=== PATIENT | female | born 1940 | race Caucasian/White ===

== ENCOUNTER → 2020-05-18 09:13 | Outpatient (CLI) | payer MEDICARE, OTHER, SELFPAY ==
--- NOTE | 2020-05-18 | DI.MG.S_ITS ---
BILATERAL DIGITAL SCREENING MAMMOGRAM 3D/2D WITH CAD POST LUMPECTOMY: 05/18/2020 CLINICAL: Routine screening. Personal history of left breast cancer. Comparison is made to exams dated: 04/03/2017 mammogram, 04/07/2018 mammogram, and 04/08/2019 mammogram - outside location. The tissue of both breasts is heterogeneously dense. This may lower the sensitivity of mammography. Current study was also evaluated with a Computer Aided Detection (CAD) system. There are benign post operative findings in the left breast. No significant masses, calcifications, or other findings are seen in either breast. There has been no significant interval change. IMPRESSION: BENIGN There is no mammographic evidence of malignancy. A 1 year screening mammogram is recommended. This exam was interpreted at Station ID: [id number]. NOTE: For mammograms, a report in lay terms will be sent to the patient. Approximately 15% of breast malignancies will not be visualized mammographically. In the management of a palpable breast mass, a negative mammogram must not discourage biopsy of a clinically suspicious lesion. Electronically Signed By: Wes ramírez/luis:05/18/2020 10:43:56 letter sent: Normal Exam ACR BI-RADS Category 2: Benign Finding(s) 3342F
--- NOTE | 2020-05-18 09:43 | DI.RAD.S_ITS ---
PROCEDURE: XR CHEST 2V INDICATIONS: COUGH SHORTNESS OF BREATH TECHNIQUE: 2 views of the chest were acquired. COMPARISON: None. FINDINGS: Surgical changes and devices: None. Lungs and pleura: Lungs are clear. No pleural effusions or pneumothorax. Mediastinum: Mediastinal contours are normal. Heart size is normal. Bones and chest wall: No suspicious bony abnormalities. Note is made of mild convex leftward scoliosis at the thoracolumbar junction with compensatory dextroscoliosis just above. Soft tissues appear unremarkable. IMPRESSION: Normal for age, source of current cough and shortness of breath symptoms is not seen. Dictated by: Pavel Neal M.D. on 05/18/2020 at 13:20 Approved by: Pavel Neal M.D. on 05/18/2020 at 13:21
== END ==
PROVIDERS: PCP Nurse Practitioner Family; Referring Provider Nurse Practitioner Family; Visit Provider Nurse Practitioner Family
DX: Z12.31 Encounter for screening mammogram for malignant neoplasm of breast (principal); Z85.3 Personal history of malignant neoplasm of breast; Z78.0 Asymptomatic menopausal state; R05 Cough; R06.02 Shortness of breath
CPT/HCPCS: 71046; 77063; 77067; 77080

== ENCOUNTER → 2021-05-23 14:46 | Outpatient (CLI) | payer MEDICARE, OTHER, SELFPAY ==
--- NOTE | 2021-05-23 | DI.MG.S_ITS ---
BILATERAL DIGITAL SCREENING MAMMOGRAM 3D/2D WITH CAD POST LUMPECTOMY: 05/23/2021 CLINICAL: Routine screening. Comparison is made to exams dated: 05/18/2020 mammogram - [facility], 04/08/2019 mammogram, and 04/07/2018 mammogram - outside location. The tissue of both breasts is heterogeneously dense. This may lower the sensitivity of mammography. Current study was also evaluated with a Computer Aided Detection (CAD) system. There are benign post operative findings in the left breast. No significant masses, calcifications, or other findings are seen in either breast. There has been no significant interval change. IMPRESSION: BENIGN There is no mammographic evidence of malignancy. A 1 year screening mammogram is recommended. This exam was interpreted at Station ID: [id number]. NOTE: For mammograms, a report in lay terms will be sent to the patient. Approximately 15% of breast malignancies will not be visualized mammographically. In the management of a palpable breast mass, a negative mammogram must not discourage biopsy of a clinically suspicious lesion. Electronically Signed By: Krishna Shelley M.D., jr/luis:05/23/2021 15:51:29 letter sent: Normal Exam ACR BI-RADS Category 2: Benign Finding(s) 3342F
== END ==
PROVIDERS: PCP Nurse Practitioner Family; Referring Provider Nurse Practitioner Family; Visit Provider Nurse Practitioner Family
DX: Z12.31 Encounter for screening mammogram for malignant neoplasm of breast (principal)
CPT/HCPCS: 77063; 77067

== ENCOUNTER → 2022-06-11 12:41 | Outpatient (CLI) | payer MEDICARE, OTHER, SELFPAY ==
--- NOTE | 2022-06-11 | DI.MG.S_ITS ---
BILATERAL DIGITAL SCREENING MAMMOGRAM 3D/2D WITH CAD: 06/11/2022 CLINICAL: Routine screening. Personal history of left breast cancer. Family history of breast cancer. Comparison is made to exams dated: 05/23/2021 mammogram, 05/18/2020 mammogram - [facility], and 04/08/2019 mammogram - outside location. Both breasts are heterogeneously dense, which may obscure small masses (category c / 51-75% glandular tissue). Current study was also evaluated with a Computer Aided Detection (CAD) system. There are benign post operative findings in the left breast. No significant masses, calcifications, or other findings are seen in either breast. There has been no significant interval change. IMPRESSION: BENIGN There is no mammographic evidence of malignancy. A 1 year screening mammogram is recommended. This exam was interpreted at Station ID: [id number]. NOTE: For mammograms, a report in lay terms will be sent to the patient. Approximately 15% of breast malignancies will not be visualized mammographically. In the management of a palpable breast mass, a negative mammogram must not discourage biopsy of a clinically suspicious lesion. Electronically Signed By: Isaiah arndt/luis:06/11/2022 14:55:51 letter sent: Normal Exam ACR BI-RADS Category 2: Benign Finding(s) 3342F
== END ==
PROVIDERS: PCP Nurse Practitioner Family; Referring Provider Nurse Practitioner Family; Visit Provider Nurse Practitioner Family
DX: Z12.31 Encounter for screening mammogram for malignant neoplasm of breast (principal); Z85.3 Personal history of malignant neoplasm of breast; Z80.3 Family history of malignant neoplasm of breast
CPT/HCPCS: 77063; 77067

== ENCOUNTER → 2023-07-10 14:58 | Outpatient (CLI) | payer MEDICARE, OTHER, SELFPAY ==
--- NOTE | 2023-07-10 14:59 | DI.MG.S_ITS ---
BILATERAL DIGITAL SCREENING MAMMOGRAM 3D/2D WITH CAD POST LUMPECTOMY: 07/10/2023 CLINICAL: Routine screening. Personal history of left breast cancer. Family History of breast cancer. Comparison is made to exams dated: 06/11/2022 mammogram, 05/23/2021 mammogram, 05/18/2020 mammogram - [facility], and 04/08/2019 mammogram - outside location. Both breasts are heterogeneously dense, which may obscure small masses (category c / 51-75% glandular tissue). Current study was also evaluated with a Computer Aided Detection (CAD) system. There are benign vascular calcifications in both breasts. There also are benign post operative findings in the left breast. No significant masses, calcifications, or other findings are seen in either breast. There has been no significant interval change. IMPRESSION: BENIGN There is no mammographic evidence of malignancy. A 1 year screening mammogram is recommended. This exam was interpreted at Station ID: [id number]. NOTE: For mammograms, a report in lay terms will be sent to the patient. Approximately 15% of breast malignancies will not be visualized mammographically. In the management of a palpable breast mass, a negative mammogram must not discourage biopsy of a clinically suspicious lesion. Electronically Signed By: Christopher quiles/luis:07/11/2023 16:23:49 letter sent: Normal Exam ACR BI-RADS Category 2: Benign Finding(s) 3342F
== END ==
LOC: MAMMO 14:59
PROVIDERS: PCP Family Medicine; Referring Provider Nurse Practitioner Family; Visit Provider Nurse Practitioner Family
DX: Z12.31 Encounter for screening mammogram for malignant neoplasm of breast (principal); Z85.3 Personal history of malignant neoplasm of breast; Z80.3 Family history of malignant neoplasm of breast; R92.333 Mammographic heterogeneous density, bilateral breasts
CPT/HCPCS: 77063; 77067

== ENCOUNTER → 2024-07-28 09:57 | Outpatient (CLI) | payer MEDICARE, OTHER, SELFPAY ==
--- NOTE | 2024-07-28 09:59 | DI.RAD.S_ITS ---
PROCEDURE: XR DEXA AXIAL SKELETON INDICATIONS: Screening COMPARISON: [facility], , XR DEXA AXIAL SKELETON, 05/18/2020, 9:38. FINDINGS: Lumbar Spine: Bone mineral density 1.083 g/cm2, T score 0.0. There is interval 2% increase in total lumbar spine bone mineral density. Left Femoral Neck: Bone mineral density 0.768 g/cm2, T score -0.7. There is interval 5.6% decrease in left femoral neck bone mineral density. Left Hip: Bone mineral density 0.982 g/cm2, T score 0.3. There is interval 0.8% decrease in total left hip bone mineral density. Fracture Risk Calculation (when applicable): 10-year fracture risk of a major osteoporotic fracture 16 percent and of a hip fracture 2.9 percent. (T score greater or equal to -1.0 to: NORMAL) (T score from -1.1 to -2.4: OSTEOPENIA) (T score less than or equal to -2.5: OSTEOPOROSIS) IMPRESSION: Normal bone mineral density. Follow-up guidelines as follows: Osteoporosis: Consider a repeat DEXA and Vertebral Fracture Assessment (VFA) exam in 2 years or sooner if medically necessary, to reassess this patient's status. Osteopenia: Consider a repeat DEXA in 2-3 years to reassess this patient's status, or if there is a new clinical indication. Normal: Consider a repeat DEXA in 5 years or sooner, or if there is a new clinical indication. All treatment decisions require clinical judgment and consideration of individual patient factors, including patient preferences, comorbidities, previous drug use, risk factors not captured in the FRAX model (e.g., frailty, falls, vitamin D deficiency, increased bone turnover, interval significant decline in bone density ) and possible under- or over-estimation of fracture risk by FRAX. In addition, the NOF Guide recommends that FDA-approved medical therapies be considered in postmenopausal women and men age >= 50 years with a: * Hip or vertebral (clinical or morphometric) fracture * T-score of <=-2.5 at the spine or hip * Ten-year fracture probability by FRAX of >= 3% for hip fracture or >=20% for major osteoporotic fracture. Dictated by: Rusty Stuart M.D. on 07/28/2024 at 16:30 Approved by: Rusty Stuart M.D. on 07/28/2024 at 16:31
--- NOTE | 2024-07-28 10:34 | DI.MG.S_ITS ---
MM screening mammo BI: 07/28/2024. BI-RADS: 2 CLINICAL: 84-year old female for bilateral screening mammogram. No Tyrer-Cuzick risk score calculation due to the patient's personal history of breast cancer. Patient reports a history of left breast carcinoma diagnosed at age 69. Status-post left lumpectomy. No first-degree family history of breast cancer. PRIOR EXAMS: Reviewed previous images from 2023, 2022, 2021 and 2020. MAMMOGRAPHY TECHNIQUE: 2D and 3D (tomosynthesis) digital mammographic views obtained, with additional images as needed for full coverage. Current study was also evaluated with a Computer Aided Detection (CAD) system. DENSITY C. The breasts are heterogeneously dense, which may obscure small masses. MAMMOGRAPHY FINDINGS Right: Typically-benign vascular calcifications noted. No significant change from comparison. Left: Benign-appearing post-surgical changes noted on the left. Typically-benign vascular calcifications also noted. No significant change from comparison. IMPRESSION: * No evidence of malignancy with benign findings. RECOMMENDATIONS Bilateral * Annual screening mammography. OVERALL ASSESSMENT CATEGORY BI-RADS-2: Benign. The [employer] recommends annual screening mammography beginning at age 40 for women with average risk of breast cancer. ELECTRONICALLY SIGNED: Isaiah Knight M.D. on 07/28/2024 at 01:50:13 PM PT Interpreting Station ID: [id number]
== END ==
PROVIDERS: PCP Family Medicine; Referring Provider Physician Assistant; Visit Provider Physician Assistant
DX: R92.333 Mammographic heterogeneous density, bilateral breasts (principal); Z12.31 Encounter for screening mammogram for malignant neoplasm of breast; Z85.3 Personal history of malignant neoplasm of breast; Z78.0 Asymptomatic menopausal state
CPT/HCPCS: 77063; 77067; 77080

== ENCOUNTER → 2024-10-14 10:47 | Outpatient (CLI) | payer MEDICARE, OTHER, SELFPAY ==
[2024-10-14 14:28] LABS: Ferritin 37 ng/mL (11-264)
== END ==
LOC: RESP 10:49
PROVIDERS: PCP Family Medicine; Referring Provider Internal Medicine; Visit Provider Internal Medicine
DX: K52.832 Lymphocytic colitis (principal); R06.02 Shortness of breath; R94.2 Abnormal results of pulmonary function studies
CPT/HCPCS: 36415; 82728; 94060; 94726; 94729

== ENCOUNTER → 2024-11-09 12:16 | Outpatient (CLI) | payer MEDICARE, OTHER, SELFPAY ==
--- NOTE | 2024-11-09 12:18 | DI.CT.S_ITS ---
PROCEDURE: CT CHEST HIGH RESOLUTION INDICATIONS: abnormal PFTs TECHNIQUE: Noncontrast 1.0 and 5.0 mm thick contiguous axial sections from the pulmonary apex to the posterior costophrenic angles, with 7 mm thick coronal and sagittal MIP reformats. 1 mm thick dynamic expiratory images acquired through the upper, mid, and lower lungs. 1.0 mm thick axial sections acquired from the yogi to the posterior costophrenic angles in the prone end-inspiration position. For radiation dose reduction, the following was used: automated exposure control, adjustment of mA and/or kV according to patient size. COMPARISON: None. FINDINGS: Image quality: Diagnostic. Lungs and Pleura: Central airways are patent. Mild bilateral central lower lobe bronchiectasis. There is mild peripheral traction bronchiectasis in the anterolateral left upper lobe. No significant bronchial wall thickening or lower lobe traction bronchiectasis. No significant air trapping on expiratory imaging. Minor subpleural fibrotic changes in the anterolateral left upper lobe and lingula. Mild peripheral reticulation in the lung bases including lateral costophrenic sulci. Numerous sub 4 mm nodules scattered throughout the both lungs. These range in density from ground-glass to solid. The largest nodule posteromedial right lower lobe measuring 6 mm (2/160). The largest in the left lower lobe measures 7 mm, 2/188. Nodules are distributed in a random fashion, some are juxtapleural suspicious for intrapulmonary lymph nodes. No pleural effusions or pleural calcifications. Lower Neck: No enlarged lymph nodes. Thyroid: Normal CT appearance. Axillae: No enlarged lymph nodes. Chest Wall: There are surgical changes of left breast lumpectomy and tethering towards the chest wall musculature. There is a chest wall soft tissue mass laterally measuring about 1.8 x 1.0 cm adjacent to surgical changes. Attenuation is similar to adjacent soft tissue. Bones: No suspicious bone lesions. Degenerative disc and endplate changes in the upper lumbar spine. Thoracic Vessels: The aorta and pulmonary arteries demonstrate normal size. Mediastinum and Delilah: Several small calcified lymph nodes in the inferior mediastinum and right hilum. Heart: Heart size is normal. No pericardial effusion. Trace coronary artery calcification. Esophagus: No wall thickening. No hiatal hernia. Upper Abdomen: Punctate splenic calcifications. Visible portions of upper abdominal organs are otherwise normal. IMPRESSION: Mild, non-specific reticulation with a lower lobe predominance. There is no honeycombing or lower lobe traction bronchiectasis to suggest fibrosis. Differential remains broad. Several scattered small lung nodules are nonspecific. Given calcified hilar and mediastinal nodes, these are statistically granulomas or post inflammatory change. Recommend follow-up in one year. There are expected changes of mild radiation fibrosis in the anterolateral left upper lung. Surgical changes of prior left breast lumpectomy with spiculated soft tissue laterally to the surgical clips. This is likely resolved seroma other postsurgical change. Correlate with any new palpable abnormalities. Dictated by: Farida Ruiz M.D. on 11/09/2024 at 16:32 Approved by: Farida Ruiz M.D. on 11/09/2024 at 17:00
== END ==
LOC: CT 12:17
PROVIDERS: PCP Physician Assistant; Referring Provider Internal Medicine; Visit Provider Internal Medicine
DX: R94.2 Abnormal results of pulmonary function studies (principal)
CPT/HCPCS: 71250